=== PATIENT | male | born 1970 | race Caucasian/White ===

== ENCOUNTER 2017-09-19 20:10 | Emergency (ER) | payer OTHER ==
[2017-09-19 22:05] LABS: ADD MAN DIFF? NO
[2017-09-19 22:07] LABS: BASOPHIL # 0.1 10^3/ul (0.0-0.1); BASOPHILS % 0.6 % (0.0-2.0); EOSINOPHILS % 0.3 % (0.0-7.0); HEMATOCRIT 34.9 % (42.0-52.0); HEMOGLOBIN 11.4 g/dl (14.0-18.0); LYMPHOCYTES # 1.3 10^3/ul (0.8-2.9); LYMPHOCYTES % 11.1 % (15.0-51.0); MEAN CORPUSCULAR HEMOGLOBIN 26.9 pg (29.0-33.0); MEAN CORPUSCULAR HGB CONC 32.7 g/dl (32.0-37.0); MEAN CORPUSCULAR VOLUME 82.3 fl (82.0-101.0); MEAN PLATELET VOLUME 9.2 fl (7.4-10.4); MONOCYTE # 0.6 10^3/ul (0.3-0.9); NEUTROPHIL # 9.8 10^3/ul (1.6-7.5); NEUTROPHILS % 81.6 % (39.0-77.0); PLATELET COUNT 386 10^3/UL (140-415); RED BLOOD COUNT 4.24 10^6/ul (4.70-6.10); RED CELL DISTRIBUTION WIDTH 13.7 % (11.5-14.5)
[2017-09-19] MEDS: ONDANSETRON 4 MG INJ IV (22:12)
[2017-09-19] MEDS: morphine 2 MG INJ IV (22:12)
[2017-09-19] MEDS: SOD CHLORIDE 0.9% 1,000 ML IV (22:13)
[2017-09-19 22:24] LABS: ADD UMIC YES; UR ASCORBIC ACID NEGATIVE (NEGATIVE); UR BACTERIA FEW /HPF (NONE SEEN); UR BILIRUBIN (Dip) NEGATIVE (NEGATIVE); UR BLOOD (Dip) 2+ mg/dL (NEGATIVE); UR CLARITY CLEAR (CLEAR); UR COLOR YELLOW (YELLOW); UR GLUCOSE (Dip) 2+ mg/dL (NEGATIVE); UR KETONES (Dip) NEGATIVE (NEGATIVE); UR LEUKOCYTE ESTERASE (Dip) 2+ Leu/ul (NEGATIVE); UR NITRITE (Dip) POSITIVE (NEGATIVE); UR RBC 1 /HPF (0-5); UR SPECIFIC GRAVITY (Dip) 1.008 (1.003-1.030); UR TOTAL PROTEIN (Dip) NEGATIVE (NEGATIVE); UR UROBILINOGEN (Dip) NEGATIVE (NEGATIVE); UR WBC 39 /HPF (0-5)
[2017-09-19 22:29] LABS: ALANINE AMINOTRANSFERASE 44 IU/L (13-69); ALBUMIN 3.6 g/dl (3.3-4.9); ALBUMIN/GLOBULIN RATIO 0.97; ALKALINE PHOSPHATASE 113 IU/L (42-121); ANION GAP 15 (8-16); ASPARTATE AMINO TRANSFERASE 36 IU/L (15-46); BLOOD UREA NITROGEN 12 mg/dl (7-20); CALCIUM 8.3 mg/dl (8.4-10.2); CARBON DIOXIDE 21 mmol/L (21-31); CHLORIDE 101 mmol/L (97-110); CREATININE 0.94 mg/dl (0.61-1.24); GLUCOSE 175 mg/dl (70-220); LIPASE 87 U/L (23-300); POTASSIUM 3.6 mmol/L (3.5-5.1); SODIUM 133 mmol/L (135-144); TOTAL PROTEIN 7.3 g/dl (6.1-8.1)
[2017-09-19 22:37] LABS: LACTIC ACID 2.5 mmol/L (0.5-2.0)
[2017-09-19 22:47] LABS: TROPONIN-I < 0.012 ng/ml (0.00-0.12)
[2017-09-20] MEDS: ONDANSETRON 4 MG INJ IV (00:24)
[2017-09-20] MEDS: CEFEPIME 2GM/50 ML (PMX) 50 ML IVPB (00:40)
[2017-09-20] MEDS: SODIUM CHLORIDE 0.9% 1L BAG IV* (00:40)
[2017-09-20 00:51] LABS: LACTIC ACID 1.3 mmol/L (0.5-2.0)
[2017-09-20 01:18] LABS: ALANINE AMINOTRANSFERASE 46 IU/L (13-69); ALBUMIN 3.3 g/dl (3.3-4.9); ALBUMIN/GLOBULIN RATIO 0.89; ALKALINE PHOSPHATASE 107 IU/L (42-121); ANION GAP 12 (8-16); ASPARTATE AMINO TRANSFERASE 33 IU/L (15-46); BLOOD UREA NITROGEN 11 mg/dl (7-20); CARBON DIOXIDE 24 mmol/L (21-31); CHLORIDE 102 mmol/L (97-110); CREATININE 0.85 mg/dl (0.61-1.24); GLUCOSE 130 mg/dl (70-220); POTASSIUM 3.6 mmol/L (3.5-5.1); SODIUM 134 mmol/L (135-144)
== END 2017-09-20 03:15 | disposition short-term general hospital (02) ==
LOC: E/R 09-20 03:15
DX: A41.9 Sepsis, unspecified organism (principal); R65.20 Severe sepsis without septic shock; N39.0 Urinary tract infection, site not specified; E86.0 Dehydration; D64.9 Anemia, unspecified; H53.8 Other visual disturbances; R40.2142 Coma scale, eyes open, spontaneous, at arrival to emergency department; R40.2252 Coma scale, best verbal response, oriented, at arrival to emergency department; R40.2362 Coma scale, best motor response, obeys commands, at arrival to emergency department
CPT/HCPCS: 36415; 71045; 76536; 80053; 81001; 83605; 83690; 84484; 85025; 87040; 87086; 93005; 96374; 96375; 99291-25

== ENCOUNTER 2017-11-20 09:50 | Inpatient (IN) | payer OTHER, MEDICAID ==
[2017-11-20] MEDS: SODIUM CHLORIDE 0.9% 1L BAG IV* (10:26)
[2017-11-20 10:28] LABS: WHITE BLOOD COUNT 23.8 10^3/ul (4.8-10.8)
[2017-11-20 10:28] LABS: HEMATOCRIT 43.9 % (42.0-52.0); HEMOGLOBIN 14.4 g/dl (14.0-18.0); MEAN CORPUSCULAR HEMOGLOBIN 26.6 pg (29.0-33.0); MEAN CORPUSCULAR HGB CONC 32.8 g/dl (32.0-37.0); MEAN PLATELET VOLUME 8.7 fl (7.4-10.4); PLATELET COUNT 703 10^3/UL (140-415); RED BLOOD COUNT 5.42 10^6/ul (4.70-6.10); RED CELL DISTRIBUTION WIDTH 13.9 % (11.5-14.5)
[2017-11-20] MEDS: CEFEPIME 2GM/50 ML (PMX) 50 ML IVPB (10:36)
[2017-11-20 10:45] LABS: ALANINE AMINOTRANSFERASE 30 IU/L (13-69); ALBUMIN 4.2 g/dl (3.3-4.9); ALBUMIN/GLOBULIN RATIO 0.91; ALKALINE PHOSPHATASE 119 IU/L (42-121); ANION GAP 23 (8-16); ASPARTATE AMINO TRANSFERASE 23 IU/L (15-46); BILIRUBIN,INDIRECT 0.2 mg/dl (0-1.1); BILIRUBIN,TOTAL 0.2 mg/dl (0.2-1.3); BLOOD UREA NITROGEN 16 mg/dl (7-20); CALCIUM 9.2 mg/dl (8.4-10.2); CARBON DIOXIDE 20 mmol/L (21-31); CHLORIDE 103 mmol/L (97-110); CREATININE 1.21 mg/dl (0.61-1.24); GLUCOSE 184 mg/dl (70-220); SODIUM 142 mmol/L (135-144); TOTAL PROTEIN 8.8 g/dl (6.1-8.1)
[2017-11-20 10:53] LABS: INR 1.02; PROTIME 13.5 Sec (11.9-14.9); PT RATIO 1.1
[2017-11-20 10:54] LABS: PARTIAL THROMBOPLASTIN TIME 34.1 Sec (25.0-35.0)
[2017-11-20 10:59] LABS: TROPONIN-I < 0.012 ng/ml (0.00-0.12)
[2017-11-20 11:02] LABS: ADD MAN DIFF? YES
[2017-11-20 11:20] LABS: LACTIC ACID 5.5 mmol/L (0.5-2.0)
[2017-11-20 11:32] LABS: ANISOCYTOSIS 2+ (0-0); BAND NEUTROPHILS #M 2.8 10^3/ul (0.0-0.6); BAND NEUTROPHILS % (M) 12 % (0-4); BASOPHIL #M 0.2 10^3/ul (0.0-0.0); BASOPHILS % (M) 1 % (0-2); GIANT THROMBO% (M) 2 % (0-0); LYMPHOCYTES #M 1.6 10^3/ul (0.8-2.9); LYMPHOCYTES % (M) 7 % (15-51); METAMYELOCYTES #M 0.4 10^3/ul (0.0-0.0); METAMYELOCYTES %M 2 % (0-0); MICROCYTOSIS 2+ (0-0); MONOCYTE #M 0.9 10^3/ul (0.3-0.9); MONOCYTES % (M) 4 % (0-11); PLATELET ESTIMATE INCREASED; POIKILOCYTOSIS 1+ (0-0); POLYCHROMASIA 1+ (0-0); REACTIVE LYMPHOCYTES #M 0.9 10^3/ul (0.0-0.0); REACTIVE LYMPHOCYTES% (M) 4 % (0-0); SEG NEUT #M 17.3 10^3/ul (1.6-7.5); SEGMENTED NEUTROPHILS (M) % 70 % (39-77); SMUDGE%M 5 % (0-0)
[2017-11-20] MEDS: VANCOMYCIN 1 GM (PMX) 250 ML IVPB (12:00)
[2017-11-20] MEDS ORDERED: ONDANSETRON 4 MG INJ IV ×2 (12:00→14:30)
[2017-11-20] MEDS ORDERED: ACETAMINOPHEN 325 MG TAB PO ×2 (12:00→14:30)
[2017-11-20 12:10] LABS: ADD UMIC YES; UR ASCORBIC ACID NEGATIVE (NEGATIVE); UR BILIRUBIN (Dip) NEGATIVE (NEGATIVE); UR BLOOD (Dip) 3+ mg/dL (NEGATIVE); UR CLARITY TURBID (CLEAR); UR COLOR AMBER (YELLOW); UR GLUCOSE (Dip) 1+ mg/dL (NEGATIVE); UR KETONES (Dip) NEGATIVE (NEGATIVE); UR LEUKOCYTE ESTERASE (Dip) 3+ Leu/ul (NEGATIVE); UR MUCUS MODERATE /HPF (NONE SEEN); UR NITRITE (Dip) NEGATIVE (NEGATIVE); UR RBC > 182 /HPF (0-5); UR SQUAMOUS EPITHELIAL CELL FEW /HPF (FEW); UR TOTAL PROTEIN (Dip) 2+ mg/dl (NEGATIVE); UR UROBILINOGEN (Dip) NEGATIVE (NEGATIVE); UR WBC > 182 /HPF (0-5)
[2017-11-20 13:19] LABS: LACTIC ACID 2.5 mmol/L (0.5-2.0)
[2017-11-20 14:28] LABS: LACTIC ACID 3.4 mmol/L (0.5-2.0)
[2017-11-20] MEDS ORDERED: ZOLPIDEM 5 MG TAB PO (14:30)
[2017-11-20] MEDS ORDERED: ALBUTEROL HFA 8 GM INHALER INH (14:30)
[2017-11-20] MEDS ORDERED: HYDROCODONE/APAP (5/325) TAB PO ×2 (14:30)
[2017-11-20] MEDS ORDERED: VANCOMYCIN IV PER PHARMACY XX (15:00)
[2017-11-20] MEDS: PIPER-TAZO 3.375 GM IV (PMX) 100 ML IVPB (15:50)
[2017-11-20] MEDS: SOD CHLORIDE 0.9% 1,000 ML IV ×2 (15:50→23:38)
[2017-11-20] MEDS: VANCOMYCIN 1 GM in 250 ML IVPB (16:22)
[2017-11-20] MEDS: FAMOTIDINE 20 MG TAB PO (22:15)
[2017-11-20] MEDS: METHOCARBAMOL 500 MG TAB PO (23:37)
[2017-11-20] MEDS: OXYBUTYNIN 5 MG TAB PO (23:37)
[2017-11-20] MEDS: IMIPRAMINE 25 MG TAB PO (23:37)
[2017-11-21] MEDS: VANCOMYCIN 1 GM in 250 ML IVPB (04:31)
[2017-11-21] MEDS: SOD CHLORIDE 0.9% 1,000 ML IV ×3 (06:28→14:00)
[2017-11-21 07:39] LABS: ADD MAN DIFF? NO
[2017-11-21 07:41] LABS: BASOPHIL # 0.1 10^3/ul (0.0-0.1); BASOPHILS % 0.6 % (0.0-2.0); EOSINOPHILS # 0.6 10^3/ul (0.0-0.5); EOSINOPHILS % 4.1 % (0.0-7.0); HEMATOCRIT 33.2 % (42.0-52.0); LYMPHOCYTES # 2.8 10^3/ul (0.8-2.9); LYMPHOCYTES % 18.7 % (15.0-51.0); MEAN CORPUSCULAR HEMOGLOBIN 27.3 pg (29.0-33.0); MEAN CORPUSCULAR HGB CONC 33.1 g/dl (32.0-37.0); MEAN CORPUSCULAR VOLUME 82.4 fl (82.0-101.0); MEAN PLATELET VOLUME 8.8 fl (7.4-10.4); MONOCYTE # 0.8 10^3/ul (0.3-0.9); MONOCYTES % 5.3 % (0.0-11.0); NEUTROPHIL # 10.3 10^3/ul (1.6-7.5); NEUTROPHILS % 69.8 % (39.0-77.0); PLATELET COUNT 492 10^3/UL (140-415); RED BLOOD COUNT 4.03 10^6/ul (4.70-6.10); RED CELL DISTRIBUTION WIDTH 13.9 % (11.5-14.5)
[2017-11-21 07:41] LABS: WHITE BLOOD COUNT 14.8 10^3/ul (4.8-10.8)
[2017-11-21 07:59] LABS: LACTIC ACID 0.8 mmol/L (0.5-2.0)
[2017-11-21 08:06] LABS: ANION GAP 15 (8-16); BLOOD UREA NITROGEN 10 mg/dl (7-20); CARBON DIOXIDE 21 mmol/L (21-31); CHLORIDE 109 mmol/L (97-110); GLUCOSE 109 mg/dl (70-220); MAGNESIUM 1.8 mg/dl (1.7-2.5); POTASSIUM 3.8 mmol/L (3.5-5.1); SODIUM 141 mmol/L (135-144)
[2017-11-21] MEDS: IMIPRAMINE 25 MG TAB PO ×3 (08:50→21:16)
[2017-11-21] MEDS: METHOCARBAMOL 500 MG TAB PO ×3 (08:50→21:12)
[2017-11-21] MEDS: FAMOTIDINE 20 MG TAB PO ×2 (08:50→21:16)
[2017-11-21] MEDS: OXYBUTYNIN 5 MG TAB PO ×3 (08:50→21:16)
[2017-11-21] MEDS: ENOXAPARIN 40 MG/0.4 ML SYG SC (08:55)
[2017-11-21] MEDS: VANCOMYCIN 1.25 GM in SOD CHLORIDE 0.9% 250 ML IVPB ×2 (12:32→20:00)
[2017-11-21] MEDS: COLLAGENASE 30 GM TUBE TOP (15:54)
[2017-11-21] MEDS ORDERED: PENDING SANTYL ORDER FOR WOUND CARE XX (16:00)
[2017-11-21] MEDS ORDERED: COLLAGENASE 30 GM TUBE TOP (16:00)
[2017-11-21 20:18] LABS: VANCOMYCIN,TROUGH 14.4 ug/ml (10.0-20.0)
[2017-11-21] MEDS: MEROPENEM 500MG/50 ML (PMX) 50 ML IVPB (21:16)
[2017-11-22] MEDS: VANCOMYCIN 1.25 GM in SOD CHLORIDE 0.9% 250 ML IVPB ×3 (04:22→21:46)
[2017-11-22] MEDS: METHOCARBAMOL 500 MG TAB PO ×3 (08:37→21:43)
[2017-11-22] MEDS: IMIPRAMINE 25 MG TAB PO ×3 (08:37→21:43)
[2017-11-22] MEDS: FAMOTIDINE 20 MG TAB PO ×2 (08:37→21:43)
[2017-11-22] MEDS: OXYBUTYNIN 5 MG TAB PO ×3 (08:37→21:43)
[2017-11-22] MEDS: MEROPENEM 500MG/50 ML (PMX) 50 ML IVPB (08:38)
[2017-11-22] MEDS: ENOXAPARIN 40 MG/0.4 ML SYG SC (08:40)
[2017-11-22 09:14] LABS: ADD MAN DIFF? NO
[2017-11-22 09:19] LABS: BASOPHIL # 0.1 10^3/ul (0.0-0.1); BASOPHILS % 0.7 % (0.0-2.0); EOSINOPHILS # 0.6 10^3/ul (0.0-0.5); EOSINOPHILS % 4.6 % (0.0-7.0); HEMATOCRIT 37.1 % (42.0-52.0); HEMOGLOBIN 12.4 g/dl (14.0-18.0); LYMPHOCYTES # 2.5 10^3/ul (0.8-2.9); LYMPHOCYTES % 20.2 % (15.0-51.0); MEAN CORPUSCULAR HGB CONC 33.4 g/dl (32.0-37.0); MEAN CORPUSCULAR VOLUME 80.7 fl (82.0-101.0); MEAN PLATELET VOLUME 8.5 fl (7.4-10.4); MONOCYTE # 0.7 10^3/ul (0.3-0.9); MONOCYTES % 5.4 % (0.0-11.0); NEUTROPHIL # 8.5 10^3/ul (1.6-7.5); NEUTROPHILS % 67.7 % (39.0-77.0); PLATELET COUNT 550 10^3/UL (140-415); RED CELL DISTRIBUTION WIDTH 13.6 % (11.5-14.5)
[2017-11-22 09:19] LABS: WHITE BLOOD COUNT 12.5 10^3/ul (4.8-10.8)
[2017-11-22 09:38] LABS: ANION GAP 17 (8-16); BLOOD UREA NITROGEN 5 mg/dl (7-20); CALCIUM 8.9 mg/dl (8.4-10.2); CARBON DIOXIDE 23 mmol/L (21-31); CHLORIDE 106 mmol/L (97-110); CREATININE 0.62 mg/dl (0.61-1.24); GLUCOSE 118 mg/dl (70-220); POTASSIUM 3.6 mmol/L (3.5-5.1); SODIUM 142 mmol/L (135-144)
[2017-11-22] MEDS: BISACODYL 10 MG SUPP PR (12:14)
[2017-11-22] MEDS: POLYETHYLENE GLYCOL 17 GM PACKET PO (12:30)
[2017-11-22] MEDS: COLLAGENASE 30 GM TUBE TOP (12:50)
[2017-11-22] MEDS: MEROPENEM 1 GM/50ML(PMX) 50 ML IVPB (15:13)
[2017-11-22] MEDS: LEVOFLOXACIN 500 MG TAB PO (15:18)
[2017-11-22] MEDS: HYDROCHLOROTHIAZIDE 25 MG TAB PO (15:21)
[2017-11-22] MEDS: SOD CHLORIDE 0.9% 1,000 ML IV ×2 (17:48)
[2017-11-23] MEDS: MEROPENEM 1 GM/50ML(PMX) 50 ML IVPB ×3 (00:19→15:20)
[2017-11-23] MEDS: SOD CHLORIDE 0.9% 1,000 ML IV (01:13)
[2017-11-23 03:47] LABS: VANCOMYCIN,TROUGH 18.8 ug/ml (10.0-20.0)
[2017-11-23] MEDS: VANCOMYCIN 1.25 GM in SOD CHLORIDE 0.9% 250 ML IVPB ×4 (04:59→21:47)
[2017-11-23] MEDS: LEVOFLOXACIN 500 MG TAB PO (05:56)
[2017-11-23 06:54] LABS: ADD MAN DIFF? NO
[2017-11-23 07:02] LABS: BASOPHIL # 0.1 10^3/ul (0.0-0.1); BASOPHILS % 0.7 % (0.0-2.0); EOSINOPHILS # 0.7 10^3/ul (0.0-0.5); HEMATOCRIT 37.4 % (42.0-52.0); HEMOGLOBIN 12.5 g/dl (14.0-18.0); LYMPHOCYTES # 2.7 10^3/ul (0.8-2.9); LYMPHOCYTES % 19.6 % (15.0-51.0); MEAN CORPUSCULAR HEMOGLOBIN 26.9 pg (29.0-33.0); MEAN CORPUSCULAR HGB CONC 33.4 g/dl (32.0-37.0); MEAN CORPUSCULAR VOLUME 80.6 fl (82.0-101.0); MEAN PLATELET VOLUME 8.6 fl (7.4-10.4); MONOCYTE # 0.8 10^3/ul (0.3-0.9); MONOCYTES % 5.7 % (0.0-11.0); NEUTROPHIL # 9.2 10^3/ul (1.6-7.5); NEUTROPHILS % 67.8 % (39.0-77.0); PLATELET COUNT 575 10^3/UL (140-415); RED BLOOD COUNT 4.64 10^6/ul (4.70-6.10); RED CELL DISTRIBUTION WIDTH 13.6 % (11.5-14.5)
[2017-11-23 07:02] LABS: WHITE BLOOD COUNT 13.5 10^3/ul (4.8-10.8)
[2017-11-23 07:18] LABS: ANION GAP 16 (8-16); BLOOD UREA NITROGEN 5 mg/dl (7-20); CALCIUM 8.9 mg/dl (8.4-10.2); CARBON DIOXIDE 24 mmol/L (21-31); CHLORIDE 103 mmol/L (97-110); CREATININE 0.67 mg/dl (0.61-1.24); GLUCOSE 119 mg/dl (70-220); POTASSIUM 3.1 mmol/L (3.5-5.1); SODIUM 140 mmol/L (135-144)
[2017-11-23] MEDS: OXYBUTYNIN 5 MG TAB PO ×3 (08:48→20:42)
[2017-11-23] MEDS: IMIPRAMINE 25 MG TAB PO ×3 (08:49→20:42)
[2017-11-23] MEDS: FAMOTIDINE 20 MG TAB PO ×2 (08:49→20:42)
[2017-11-23] MEDS: METHOCARBAMOL 500 MG TAB PO ×3 (08:49→20:42)
[2017-11-23] MEDS: POLYETHYLENE GLYCOL 17 GM PACKET PO (08:50)
[2017-11-23] MEDS: HYDROCHLOROTHIAZIDE 25 MG TAB PO (08:50)
[2017-11-23] MEDS: ENOXAPARIN 40 MG/0.4 ML SYG SC (08:58)
[2017-11-23] MEDS: COLLAGENASE 30 GM TUBE TOP (11:32)
[2017-11-23] MEDS: POTASSIUM CHLORIDE (SR) 20 MEQ TAB PO (12:17)
[2017-11-23] MEDS ORDERED: POTASSIUM CHLORIDE 50 ML IVPB (14:00)
[2017-11-23] MEDS ORDERED: MEROPENEM 1 GM/50ML(PMX) 50 ML IVPB (15:30)
[2017-11-23] MEDS: POTASSIUM CHLORIDE 20 MEQ/SW 100 ML IVPB ×2 (16:06→18:43)
[2017-11-24] MEDS: MEROPENEM 1 GM/50ML(PMX) 50 ML IVPB ×3 (00:57→17:00)
[2017-11-24] MEDS: VANCOMYCIN 1.25 GM in SOD CHLORIDE 0.9% 250 ML IVPB ×2 (04:39→13:22)
[2017-11-24] MEDS: SOD CHLORIDE 0.9% 1,000 ML IV ×2 (04:48→08:21)
[2017-11-24 05:56] LABS: ADD MAN DIFF? NO
[2017-11-24 06:12] LABS: WHITE BLOOD COUNT 16.3 10^3/ul (4.8-10.8)
[2017-11-24 06:12] LABS: BASOPHIL # 0.1 10^3/ul (0.0-0.1); BASOPHILS % 0.7 % (0.0-2.0); EOSINOPHILS # 0.5 10^3/ul (0.0-0.5); EOSINOPHILS % 3.3 % (0.0-7.0); HEMATOCRIT 38.5 % (42.0-52.0); HEMOGLOBIN 12.5 g/dl (14.0-18.0); LYMPHOCYTES # 2.5 10^3/ul (0.8-2.9); LYMPHOCYTES % 15.5 % (15.0-51.0); MEAN CORPUSCULAR HEMOGLOBIN 26.5 pg (29.0-33.0); MEAN CORPUSCULAR HGB CONC 32.5 g/dl (32.0-37.0); MEAN CORPUSCULAR VOLUME 81.6 fl (82.0-101.0); MEAN PLATELET VOLUME 8.6 fl (7.4-10.4); MONOCYTE # 0.9 10^3/ul (0.3-0.9); MONOCYTES % 5.3 % (0.0-11.0); NEUTROPHILS % 73.9 % (39.0-77.0); PLATELET COUNT 543 10^3/UL (140-415); RED BLOOD COUNT 4.72 10^6/ul (4.70-6.10); RED CELL DISTRIBUTION WIDTH 13.5 % (11.5-14.5)
[2017-11-24] MEDS: LEVOFLOXACIN 500 MG TAB PO (06:20)
[2017-11-24 06:30] LABS: ANION GAP 19 (8-16); BLOOD UREA NITROGEN 7 mg/dl (7-20); CALCIUM 8.9 mg/dl (8.4-10.2); CARBON DIOXIDE 20 mmol/L (21-31); CHLORIDE 103 mmol/L (97-110); GLUCOSE 106 mg/dl (70-220); POTASSIUM 4.1 mmol/L (3.5-5.1); SODIUM 138 mmol/L (135-144)
[2017-11-24] MEDS: POLYETHYLENE GLYCOL 17 GM PACKET PO (08:22)
[2017-11-24] MEDS: ENOXAPARIN 40 MG/0.4 ML SYG SC (08:27)
[2017-11-24] MEDS: HYDROCHLOROTHIAZIDE 25 MG TAB PO (08:28)
[2017-11-24] MEDS: OXYBUTYNIN 5 MG TAB PO ×2 (08:28→13:22)
[2017-11-24] MEDS: IMIPRAMINE 25 MG TAB PO ×2 (08:28→13:23)
[2017-11-24] MEDS: FAMOTIDINE 20 MG TAB PO (08:29)
[2017-11-24] MEDS: METHOCARBAMOL 500 MG TAB PO ×2 (09:59→13:22)
[2017-11-24] MEDS: COLLAGENASE 30 GM TUBE TOP (15:00)
== END 2017-11-24 18:50 | disposition home health service (06) | DRG 871 ==
LOC: E/R 09:50 → MS2 11-22 23:20 → E/R 19:11 → MS4 11:50
DX: A41.9 Sepsis, unspecified organism (principal); L89.153 Pressure ulcer of sacral region, stage 3; L89.313 Pressure ulcer of right buttock, stage 3; J18.9 Pneumonia, unspecified organism; R65.21 Severe sepsis with septic shock; Z68.41 Body mass index [BMI] 40.0-44.9, adult; G82.20 Paraplegia, unspecified; N39.0 Urinary tract infection, site not specified; R55 Syncope and collapse; S14.104S Unspecified injury at C4 level of cervical spinal cord, sequela; N31.9 Neuromuscular dysfunction of bladder, unspecified; E66.01 Morbid (severe) obesity due to excess calories; Y95 Nosocomial condition; B96.20 Unspecified Escherichia coli [E. coli] as the cause of diseases classified elsewhere; B95.62 Methicillin resistant Staphylococcus aureus infection as the cause of diseases classified elsewhere; B95.2 Enterococcus as the cause of diseases classified elsewhere; Z74.01 Bed confinement status
CPT/HCPCS: 36415; 71045; 80048; 80053; 80202; 81001; 83605; 83735; 84484; 85025; 85610; 85730; 87040; 87070; 87086; 93005; 96361; 96374; 96375; 99291-25